=== PATIENT | male | born 1980 | race Caucasian/White ===

== ENCOUNTER → 2016-10-18 | Outpatient (CLI) | payer MEDICAID | LOC: FIMAGING 15:41 | PROVIDERS: ATTEND Physician Assistant | DX: Z03.89 Encounter for observation for other suspected diseases and conditions ruled out (principal) ==

== ENCOUNTER 2016-11-03 17:45 | Emergency (ER) | payer MEDICAID ==
[2016-11-03 17:51] VITALS: O2SAT 96
--- NOTE | 2016-11-03 19:12 | EDPHY ---
H & P Stated Complaint: abscess R ear x 3 days - Personal History Current Tetanus/Diphtheria Vaccine: Yes Current Tetanus Diphtheria and Acellular Pertussis (TDAP): Yes - Medical/Surgical History Hx Asthma: No Hx Chronic Respiratory Disease: No Hx Diabetes: No Hx Cardiac Disease: No Hx Renal Disease: No Hx Cirrhosis: No Hx Alcoholism: No Hx HIV/AIDS: No Hx Splenectomy or Spleen Trauma: No Other PMH: pmh: denies. psh: denies - Social History Smoking Status: Never smoked HPI/ROS: Chief complaint: Skin abscess History of present illness: This is a 36-year-old male who presents to the emergency department for a skin abscess. Patient noted a small lesion develope just in front of his right ear over the last few days. It is uncomfortable. It has been slowly worsening. He denies precipitating factors. He denies alleviating factors. He denies other associated signs or symptoms including no redness or swelling around the site, no fevers. No other complaints. (Arvind Mario) - Physical Exam Exam: General: Alert, nontoxic Eyes: PERRLA ENT: Tympanic membranes, external auditory canal, external ear and tissue over the mastoid is unremarkable. He is opening closing his mouth without difficulty. Skin: There is a small abscess anterior to the right ear. There is no surrounding cellulitic changes. Neurological: Alert and oriented x4. No meningismus. (Arvind Mario) Constitutional: Initial Vital Signs Temperature (C) 37 C 11/03/16 17:49 Heart Rate 81 11/03/16 17:49 Respiratory Rate 17 11/03/16 17:49 Blood Pressure 163/106 H 11/03/16 17:49 O2 Sat (%) 96 11/03/16 17:49 O2 Delivery Mode Room Air Allergies/Adverse Reactions: No Known Allergies Allergy (Verified 11/03/16 17:49) Home Medications: Medication Instructions Recorded NK [No Known Home Meds] 11/03/16 Medical Decision Making Procedures: Procedure: Abscess drainage. The patient's abscess was located anterior to the right ear. I obtained verbal consent from the patient to drain the abscess who was informed about the possibility of bleeding and pain. The abscess was incised with a scalpel and a moderate amount of purulent drainage was expressed. The wound was irrigated. The patient tolerated the procedure well. The procedure was performed by myself. (Arvind Mario) ED Course/Re-evaluation: Patient is seen under the supervision of my secondary supervising physician Dr. Swetha Hayes. Patient presents to the emergency department concerned he has an abscess on his face. He does appear to have a small abscess. It is incised and drained, irrigated, cleaned and dressed. Wound cultures obtained. There are no surrounding cellulitic changes. I do not believe antibiotics are warranted at this time. Patient is discharged home. Home care is discussed. He is asked to follow up with a primary care doctor for recheck. Return precautions are given. Patient voiced understanding and agreement with plan. ( Arvind Mario) The patient was evaluated and managed by the physician campus administrative assistant. I have reviewed this chart and I agree with the findings and plan of care as documented , as indicated by my signature. I am the secondary supervising physician. ( Swetha Hayes) Differential Diagnosis: Included but not limited to abscess, cyst, cellulitis (Arvind Mario) - Data Points Microbiology Results: MICROBIOLOGY 11/03/16 19:04 Face - Swab Gram Stain - Final 11/03/16 19:04 Face - Swab Wound Culture - Final Departure - Departure Disposition: Home, Routine, Self-Care Clinical Impression: Abscess Condition: Good Instructions: Abscess (ED) Additional Instructions: Follow-up with the primary care doctor next week for recheck Keep wound clean with soap and water multiple times daily Apply warm compresses to the region as discussed multiple times daily If symptoms worsen or new symptoms develop return to the emergency room for recheck Referrals: Kay Donis, PAC [Primary Care Provider] - As per Instructions
[2016-11-03 19:35] VITALS: BP 154/108; PULSE 73; RESP 16; TEMP 98.4
== END 2016-11-03 19:35 | disposition home or self-care (01) ==
PROC: 09900ZZ Drainage of Right External Ear, Open Approach (ICD-10-PCS; principal; 2016-11-03)
DX: H60.01 Abscess of right external ear (principal)

== ENCOUNTER 2017-05-03 21:04 | Emergency (ER) | payer MEDICAID ==
[2017-05-03 21:17] VITALS: BP 153/104; PULSE 81; RESP 18; TEMP 98.6; O2SAT 95
[2017-05-03] MEDS ORDERED: FLUORESCEIN SODIUM 1 MG STRIP OP ONE (21:32)
[2017-05-03] MEDS ORDERED: PROPARACAINE 0.5% 15 ML OPHT DROP ONE (21:32)
--- NOTE | 2017-05-03 21:50 | EDPHY ---
H & P Stated Complaint: RED ITCHY DRAINAGE FROM BOTH EYES FOR PAST FEW HOURS Time Seen by Provider: 05/03/17 21:49 HPI/ROS: CHIEF COMPLAINT: Bilateral eye redness HISTORY OF PRESENT ILLNESS: The patient presents the ED with complaints of bilateral eye redness. The patient believes he may have scratched his eyes running then today. He does not were contact lenses. He denies any occupational exposure to metal grinders. REVIEW OF SYSTEMS: A comprehensive 10 point review of systems is otherwise negative aside from elements mentioned in the history of present illness. Source: Patient Exam Limitations: No limitations - Personal History Current Tetanus/Diphtheria Vaccine: Yes Current Tetanus Diphtheria and Acellular Pertussis (TDAP): Yes - Medical/Surgical History Hx Asthma: No Hx Chronic Respiratory Disease: No Hx Diabetes: No Hx Cardiac Disease: No Hx Renal Disease: No Hx Cirrhosis: No Hx Alcoholism: No Hx HIV/AIDS: No Hx Splenectomy or Spleen Trauma: No Other PMH: pmh: denies. psh: denies - Social History Smoking Status: Never smoked - Physical Exam Exam: Visual Acuity: noted from Nurse's notes. Pupils: equal round and reactive to light EOMI Skin: no proptosis, no periorbital erythema or swelling, no vesicles Conjunctivae: Scant injection bilaterally, no discharge Cornea: exam with fluorescein shows small bilateral corneal abrasions Anterior chamber: normal, no hyphema or hypopyon Constitutional: Initial Vital Signs Temperature (C) 37.0 C 05/03/17 21:15 Heart Rate 81 05/03/17 21:15 Respiratory Rate 18 05/03/17 21:15 Blood Pressure 153/104 H 05/03/17 21:15 O2 Sat (%) 95 05/03/17 21:15 O2 Delivery Mode Room Air Allergies/Adverse Reactions: No Known Allergies Allergy (Verified 05/03/17 21:17) Home Medications: Medication Instructions Recorded NK [No Known Home Meds] 11/03/16 Medical Decision Making ED Course/Re-evaluation: The patient presents to the ED with small bilateral corneal abrasions. He will be started on Ocuflox eyedrops 1 drop 5 times a day for the next week. The patient is advised to return to the emergency department for any worsening symptoms or other concerns. Differential Diagnosis: Differential diagnosis considered includes corneal ulcer, corneal abrasion, ocular foreign body, conjunctivitis Departure - Departure Disposition: Home, Routine, Self-Care Clinical Impression: Corneal abrasion Condition: Good Instructions: Corneal Abrasion (ED) Additional Instructions: 1. Ocuflox eye drop 1 drop each 5 times Referrals: Kay Donis PAC [Primary Care Provider] - As per Instructions
[2017-05-03] MEDS ORDERED: OFLOXACIN 0.3% SOLN PREPACK OPHT.BTL TAKEHOME ONE (22:16)
== END 2017-05-03 22:35 | disposition home or self-care (01) ==
DX: S05.02XA Injury of conjunctiva and corneal abrasion without foreign body, left eye, initial encounter (principal); S05.01XA Injury of conjunctiva and corneal abrasion without foreign body, right eye, initial encounter; X58.XXXA Exposure to other specified factors, initial encounter

== ENCOUNTER 2017-08-31 20:15 | Emergency (ER) | payer MEDICAID ==
[2017-08-31] MEDS ORDERED: FLUORESCEIN SOD/BENOXINATE HCL 20 DROPS/ML OPHT.BTL ONE (20:33)
[2017-08-31] MEDS ORDERED: SULFACETAMIDE DROPS 10% PREPACK OPHT.BTL TAKEHOME ONE (20:42)
--- NOTE | 2017-08-31 20:42 | EDPHY ---
H & P Stated Complaint: red itchy eyes Time Seen by Provider: 08/31/17 20:36 HPI/ROS: HPI: This is a 37-year-old male who presents with Chief Complaint: Bilateral eye redness, itchiness Location: Bilateral eye Quality: Redness and itchiness Duration: 1-3 days Signs and Symptoms: no fever, no nausea, no vomiting, no photophobia, no noise sensitivity, no neck stiffness, no ear pain, no tinnitus, no nasal congestion, no sinus pressure, no weakness, no radiation, no aura Timing: Acute, intermittent Severity: Mild Context: Patient is currently in a fdc house, was crawling around underneath the house 2-3 days ago. Reports that he felt like dust particles got into his eyes. He was not working around metal. Reports tetanus up-to- date. He denies any seasonal allergies, sneezing, runny nose, scratchy throat. He does not wear contact lenses or glasses. Denies any vision changes/visual floaters/headache/diplopia/ocular discharge. Modifying Factors: None Comment: ROS: see HPI Constitutional: No fever, no chills, no weight loss Eyes: No blurred vision Respiratory: No shortness of breath, no cough Cardiovascular: No chest pain, no palpitations Gastrointestinal: No nausea, no vomiting, no diarrhea, no hematemesis, no blood in stool Genitourinary: No dysuria, no blood in urine Extremities: No myalgias, no edema Neurologic: No weakness, no numbness Skin: No rashes, no petechiae Hematologic: No bruising, no bleeding MEDICAL/SURGICAL/SOCIAL HISTORY: Medical history: drug abuser Surgical history: Denies Social history: Tobacco use. Family history noncontributory. General appearance: Extremely well-appearing adult white male, awake and alert , nontoxic appearance Visual Acuity: noted from Nurse's notes. Pupils: equal round and reactive to light. EOMI. Lids: no edema or swelling Skin: no proptosis, no periorbital erythema or swelling, no vesicles Conjunctivae: not injected, no discharge Cornea: No fluorescein uptake Anterior chamber: normal, no hyphema or hypopyon Source: Patient Exam Limitations: No limitations - Personal History Current Tetanus/Diphtheria Vaccine: Yes Current Tetanus Diphtheria and Acellular Pertussis (TDAP): Yes - Medical/Surgical History Hx Asthma: No Hx Chronic Respiratory Disease: No Hx Diabetes: No Hx Cardiac Disease: No Hx Renal Disease: No Hx Cirrhosis: No Hx Alcoholism: No Hx HIV/AIDS: No Hx Splenectomy or Spleen Trauma: No Other PMH: pmh: denies. psh: denies - Social History Smoking Status: Never smoked Constitutional: Initial Vital Signs Temperature (C) 36.7 C 08/31/17 20:19 Heart Rate 88 08/31/17 20:19 Respiratory Rate 16 08/31/17 20:19 Blood Pressure 150/90 H 08/31/17 20:19 O2 Sat (%) 94 08/31/17 20:19 O2 Delivery Mode Room Air Allergies/Adverse Reactions: No Known Allergies Allergy (Verified 08/31/17 20:19) Home Medications: Medication Instructions Recorded NK [No Known Home Meds] 11/03/16 Medical Decision Making ED Course/Re-evaluation: Tetanus up-to-date. Does not wear contact lenses. No visual acuity changes. Given Bleph 10 eye drops prepack and advised OTC antihistamine use, cool compresses p.r.n. [facility] house forms completed per request. This patient was seen under the supervision of my secondary supervising physician. I evaluated care for this patient independently. Differential Diagnosis: Differential diagnosis includes but is not limited to viral conjunctivitis, bacterial conjunctivitis, allergic conjunctivitis, corneal abrasion. Departure - Departure Disposition: Home, Routine, Self-Care Clinical Impression: Corneal irritation of both eyes Condition: Good Instructions: Corneal Abrasion (ED), Conjunctivitis (ED) Additional Instructions: Take Tylenol 650 mg every 4 hours and/or Ibuprofen 600 mg every 8 hours with food as needed for pain. Do not itch or scratch your eyes. Apply eyedrops to both eyes every 6 hr while awake x5 days. Take [id number] antihistamine like Claritin or Smiley or Zyrtec daily for allergies. Apply cool compresses for 30 minutes at a time; 2-3 times per day for the next 1 -2 days. Referrals: Kay Donis, PAC [Primary Care Provider] - As per Instructions
[2017-08-31 21:01] VITALS: BP 148/85
== END 2017-08-31 21:01 | disposition home or self-care (01) ==
DX: H57.8 Other specified disorders of eye and adnexa (principal)

== ENCOUNTER 2018-06-10 15:18 | Emergency (ER) | payer MEDICAID ==
[2018-06-10 15:27] VITALS: BP 152/112
--- NOTE | 2018-06-10 15:51 | EDPHY ---
H & P Time Seen by Provider: 06/10/18 15:45 HPI/ROS: CHIEF COMPLAINT: Possible Q-tip in right ear HISTORY OF PRESENT ILLNESS: 38-year-old male was cleaning his ear thinks that a piece of the cotton may have fallen off to his right ear. Unable to remove it. Occurred shortly prior to arrival. No hearing loss. No tinnitus. No nausea or vomiting. No headache. No otalgia. No otorrhea. PRIMARY CARE PROVIDER: REVIEW OF SYSTEMS: 10 systems reviewed and are negative with exception of illness mentioned in the history of present illness PHYSICAL EXAM (Prior to examination, patient consented to physical exam, hands were washed and my usual and customary physical exam procedures followed) 1) GENERAL: Well-developed, well-nourished, alert and oriented. Appears to be in no acute distress. 2) HEAD: Normocephalic 3) HEENT: sclera anicteric . Right ear: Clear EAC, no evidence of perforation , no foreign body, no irritation, no evidence of otitis media otitis externa. Left ear: Clear EAC, no evidence of perforation, no foreign body, no irritation no evidence of otitis media otitis externa. 4) LUNGS: Breathing comfortably. Smoking Status: Never smoked Constitutional: Initial Vital Signs Temperature (C) 36.3 C 06/10/18 15:23 Heart Rate 83 06/10/18 15:23 Respiratory Rate 16 06/10/18 15:23 Blood Pressure 152/112 H 06/10/18 15:23 O2 Sat (%) 96 06/10/18 15:23 O2 Delivery Mode Room Air Allergies/Adverse Reactions: No Known Allergies Allergy (Verified 06/10/18 15:27) Home Medications: Medication Instructions Recorded Cyclobenzaprine [Flexeril] 10 mg PO HS PRN #10 tab 11/29/17 Fungal Ingection Med 11/29/17 MDM/Departure - [facility] ED Course/Re-evaluation: Patient has no foreign body in either external auditory canal. He has no signs of infection bilaterally. No evidence of perforation bilaterally. He will be discharged. Recommend foreign body avoidance in the future. Patient feels comfortable being discharged. All questions and concerns addressed by myself. Patient given my usual and customary discharge precautions and instructions regarding their clinical impression. Care of patient under supervision of secondary supervising physician Dr Kearney . - Depart Disposition: Home, Routine, Self-Care Clinical Impression: Foreign body evaluation right ear Condition: Good Instructions: Ear Foreign Body (ED) Additional Instructions: Do not place foreign objects including Q-tips in to your ear Referrals: Kay Donis, PAC [Primary Care Provider] - As per Instructions
== END 2018-06-10 15:53 | disposition home or self-care (01) ==
DX: Z00.00 Encounter for general adult medical examination without abnormal findings (principal)